=== PATIENT | male | born 1995 | race Caucasian/White ===

== ENCOUNTER 2017-05-02 14:29 | Emergency (ER) | payer SELFPAY ==
[~2017-05-02] VITALS: Ht 170.2 cm; Wt 54.0 kg
[2017-05-02 14:56] VITALS: BP 117/81
== END 2017-05-02 15:13 | disposition home or self-care (01) ==
LOC: ER 14:32
DX: H66.91 Otitis media, unspecified, right ear (principal); F17.210 Nicotine dependence, cigarettes, uncomplicated